=== PATIENT | female | born 1950 | race Caucasian/White ===

== ENCOUNTER 2019-02-05 18:13 | Emergency (ER) | payer MEDICARE, OTHER ==
[~2019-02-05] VITALS: Ht 162.6 cm; Wt 58.0 kg
[2019-02-05 18:32] VITALS: Ht 162.6 cm; Wt 58.0 kg
[2019-02-05] MEDS ORDERED: SOD CHLORIDE 0.9% 1,000 ML IV STA (19:20)
[2019-02-05] MEDS ORDERED: KETOROLAC 15 MG INJ IV STA (19:20)
--- NOTE | 2019-02-05 19:23 | ERD ---
ER Documentation Chief Complaint Chief Complaint s/p fall; lac at the back of head; back pain; no LOC HPI 60-year-old woman complains of scalp pain and bleeding after falling backwards off a flight of steps that had no banister along the sides. She fell onto her back and complains of posterior scalp and left mid back pain. She denies loss of consciousness, no chest pain or shortness of breath, no abdominal pain, no nausea or vomiting, no complaints of headache or blurry vision. Patient was ambulatory at the scene and was transported here by EMS without further complications ROS All systems reviewed and are negative except as per history of present illness. Medications Home Meds Active Scripts Cephalexin* (Keflex*) 500 Mg Capsule, 500 MG PO TID for 3 Days, CAP Prov:AMADEO PRESCOTT MD 02/05/19 Oxycodone HCl/Acetaminophen (Percocet 5-325 mg Tablet) 1 Each Tablet, 1 EACH PO TID PRN for PAIN LEVEL 6-10, #12 TAB Prov:AMADEO PRESCOTT MD 02/05/19 Ibuprofen* (Motrin*) 600 Mg Tab, 600 MG PO Q8 PRN for PAIN AND/OR INFLAMMATION, #30 TAB Prov:AMADEO PRESCOTT MD 02/05/19 Allergies Allergies: Coded Allergies: No Known Allergy (Unverified , 02/05/19) Physical Exam Vitals Vital Signs Date Temp Pulse Resp B/P (MAP) Pulse Ox O2 O2 Flow FiO2 Time Delivery Rate 02/05/19 85 18 131/70 99 Room Air 21:01 (90) 02/05/19 98.3 69 18 127/66 98 18:32 (86) Physical Exam GENERAL: Well-developed, well-nourished, well-hydrated, in no apparent distress, looks nontoxic in appearance HEENT: Moist mucous membranes, pink conjunctiva, no cervical spine tenderness or step-off deformities, no mastoid bone tenderness, no hemotympanum, 3 cm laceration to the posterior right scalp with mild bleeding. NEURO: Alert and oriented 3, cranial nerves II through XII intact bilaterally, pupils equal round reactive to light, no focal deficits or facial asymmetry, sensation intact distally Strength 5/5 in upper and lower extremities bilateral ly CARDIAC: Regular rate and rhythm, no murmurs rubs or gallops LUNGS: Clear bilaterally no wheezing crackles or stridor ABDOMEN: Soft nontender, no guarding, no rigidity, no rebound, no psoas sign no obturator sign. Normoactive bowel sounds SKIN: Warm and dry to touch, superficial abrasion laceration hematoma to the posterior scalp, no target lesions, and without ulcers EXTREMITIES: No clubbing cyanosis or edema, calves are bilaterally symmetrical, no Homans sign, no popliteal cord sign. Distal pulses equal and bilateral Result Diagram: 02/05/19194002/05/191940 Results 24 hrs Laboratory Tests Test 02/05/19 19:41 White Blood Count 11.4 10^3/ul Red Blood Count 4.46 10^6/ul Hemoglobin 12.3 g/dl Hematocrit 37.8 % Mean Corpuscular Volume 84.8 fl Mean Corpuscular Hemoglobin 27.6 pg Mean Corpuscular Hemoglobin Concent 32.5 g/dl Red Cell Distribution Width 12.4 % Platelet Count 253 10^3/UL Mean Platelet Volume 8.6 fl Immature Granulocytes % 1.500 % Neutrophils % 81.6 % Lymphocytes % 10.2 % Monocytes % 6.1 % Eosinophils % 0.3 % Basophils % 0.3 % Nucleated Red Blood Cells % 0.0 /100WBC Immature Granulocytes # 0.170 10^3/ul Neutrophils # 9.3 10^3/ul Lymphocytes # 1.2 10^3/ul Monocytes # 0.7 10^3/ul Eosinophils # 0.0 10^3/ul Basophils # 0.0 10^3/ul Nucleated Red Blood Cells # 0.0 10^3/ul Sodium Level 139 mmol/L Potassium Level 3.7 mmol/L Chloride Level 105 mmol/L Carbon Dioxide Level 28 mmol/L Anion Gap 6 Blood Urea Nitrogen 24 mg/dl Creatinine 0.72 mg/dl Est Glomerular Filtrat Rate mL/min > 60 mL/min Glucose Level 115 mg/dl Calcium Level 9.3 mg/dl Current Medications Medications Dose Sig/Jairo Start Time Status Last (Trade) Ordered Route PRN Stop Time Admin Dose Reason Admin Lidocaine 20 ml ONCE ONCE 02/05/19 DC (Xylocaine SC 19:30 02/05/19 1% (Mdv) 20 19:31 ml) Diphtheria/ 0.5 ml ONCE ONCE 02/05/19 DC 02/05/19 Tetanus/Acell IM* 19:30 02/05/19 19:56 Pertussis 19:31 (Adacel) Sodium 1,000 ml @ Q1H STAT 02/05/19 DC 02/05/19 Chloride 1,000 mls/hr IV 19:20 02/05/19 19:57 20:19 Ketorolac 15 mg ONCE STAT 02/05/19 DC 02/05/19 Tromethamine IV 19:20 02/05/19 19:55 (Toradol) 19:23 Oxycodone/ 1 tab ONCE ONCE 02/05/19 DC 02/05/19 Acetaminophen PO 19:30 02/05/19 19:57 (Percocet 19:31 (5/ 325)) Procedures/MDM IV line was established patient was placed on desk monitor rhythm strip revealed a sinus rhythm at about 80 bpm with upright P and T waves. Patient was afebrile I administered 1 L normal saline IV, Tdap 0.5 mL IM x1, Toradol 15 mg IV, Percocet 1 tablet p.o. Chest X-ray 1V Interpreted by me: Soft Tissue: No acute abnormalities Bones: No acute abnormalities Mediastinum/Cardiac Silhouette/Lungs: No acute abnormalities CT scan of the brain was negative for acute bleed mass or shift. CBC and electrolytes were normal Laceration Repair by me: Anesthesia: 1% lidocaine locally Location: Posterior scalp Tendon/Joint/Nerves: No injury Foreign body: None detected after copious irrigation and exploration Technique: Simple Interrupted eladio were placed Complexity: No subcutaneous sutures/mucosal repair/edge excision Post Closure Length: 3 cm Patient's bleeding was easily controlled in the department and there is no indication of anemia. No evidence of compartment syndrome, neurologic injury, vascular injury, open joint, tendon laceration, or foreign body. Patient is appropriate for outpatient follow up. 48 hour wound check. Scar minimization instructions given. Differential diagnoses considered, included but not limited to acute coronary syndrome, pulmonary embolism, aortic dissection, abdominal aortic aneurysm, sepsis, stroke, meningitis, encephalitis, pneumonia, appendicitis, cholecystitis, bowel obstruction, pyelonephritis, nephrolithiasis, cystitis, as well as metabolic, hematologic, and electrolyte abnormalities. As well as abscess, cellulitis, fractures, and dislocations. Patient feels much better at this time, and vital signs are normal, symptoms have improved. I did give strict instructions to return to the ED if symptoms continue or worsen, patient will otherwise follow-up with primary care physician. Patient understood instructions and agreed to plan. Disclaimer: Inadvertent spelling and grammatical errors are likely due to EHR/dictation software use and do not reflect on the overall quality of patient care. Also, please note that the electronic time recorded on this note does not necessarily reflect the actual time of the patient encounter. Departure Diagnosis: Primary Impression: Scalp laceration Encounter type: initial encounter Qualified Codes: S01.01XA - Laceration without foreign body of scalp, initial encounter Additional Impressions: Scalp contusion Encounter type: initial encounter Qualified Codes: S00.03XA - Contusion of scalp, initial encounter Back contusion Encounter type: initial encounter Laterality: left Qualified Codes: S20.222A - Contusion of left back wall of thorax, initial encounter Closed head injury Encounter type: initial encounter Qualified Codes: S09.90XA - Unspecified injury of head, initial encounter Condition: Good AMADEO PRESCOTT MD Feb 05, 2019 19:23
[2019-02-05] MEDS ORDERED: LIDOCAINE 1% (MDV) 20 ML INJ SC ONE (19:30)
[2019-02-05] MEDS ORDERED: OXYCODONE/ACETAMINOPHEN (5/325) TAB PO ONE (19:30)
[2019-02-05] MEDS ORDERED: DIPHTH/TET/ACEL PERTUSS (ADULT) 0.5 ML VIAL IM* ONE (19:30)
[2019-02-05] MEDS ORDERED: CEPH-443 PO (20:58)
[2019-02-05] MEDS ORDERED: OXYC-279 PO (20:58)
[2019-02-05] MEDS ORDERED: IBUP-1542 PO (20:58)
[2019-02-05 21:01] VITALS: BP 131/70; PULSE 85; RESP 18
== END 2019-02-05 21:27 | disposition home or self-care (01) ==
LOC: E/R 18:13
DX: S01.01XA Laceration without foreign body of scalp, initial encounter (principal); S20.222A Contusion of left back wall of thorax, initial encounter; W18.39XA Other fall on same level, initial encounter; Y92.9 Unspecified place or not applicable; Z23 Encounter for immunization
CPT/HCPCS: 12002; 36415; 70450; 71045; 80048; 85025; 90471; 90715; 96374; 99285; J1885; J7030